=== PATIENT | female | born 1965 | race Hispanic/Latino ===

== ENCOUNTER 2018-01-01 07:00 | Inpatient (IN) | payer BC ==
[2017-12-31 15:38] VITALS: BP 143/84
[2017-12-31 15:55] LABS: BASOPHILS % (AUTO) 0.7 % (0.0-5.0); EOSINOPHILS % (AUTO) 1.8 % (0.0-8.0); HEMATOCRIT 39.5 % (36-48); LYMPHOCYTES % (AUTO) 37.6 % (21.0-51.0); MEAN CORPUSCULAR HEMOGLOBIN 31.5 pg (27.0-33.0); MEAN CORPUSCULAR HGB CONC 35.2 g/dL (32.0-36.0); MEAN CORPUSCULAR VOLUME 89.5 fL (79-99); MONOCYTES % (AUTO) 7.9 % (3.0-13.0); PLATELET COUNT (AUTO) 336 K/uL (130-400); RED BLOOD CELL COUNT(AUTO) 4.42 MIL/uL (4.00-5.50); RED CELL DISTRIBUTION WIDTH 11.8 % (11.0-15.5); WHITE BLOOD COUNT (AUTO) 7.7 K/uL (4.8-10.8)
[~2018-01-01] VITALS: Ht 158.8 cm; Wt 71.7 kg
[2018-01-01] VITALS (23 sets, daily range): BP systolic 95–149; BP diastolic 53–85
[~2018-01-01 07:00] MED LIST: CHOL100044 PO; FENO145T PO; metoprolol PO
[2018-01-01] MEDS ORDERED: LACTATED RINGERS 1000ML 1,000 ML IV ONE (07:50)
[2018-01-01] MEDS ORDERED: GLYCOPYRROLATE 0.2 MG/ML 5 ML VIAL ONE (08:00)
[2018-01-01] MEDS ORDERED: FENTANYL CITRATE PF 50 MCG/1 ML 2ML VIAL ONE ×2 (08:00→08:43)
[2018-01-01] MEDS ORDERED: PROPOFOL 10 MG/ML 20ML VIAL IV ONE (08:00)
[2018-01-01] MEDS ORDERED: LIDOCAINE PF 2% 5ML ABBOJECT ONE (08:00)
[2018-01-01] MEDS ORDERED: DEXAMETHASONE SOD PHOSPHATE 10MG/ML 1ML VIAL ONE (08:00)
[2018-01-01] MEDS ORDERED: WATER FOR INJECTION,STERILE 20 ML VIAL IJ ONE (08:00)
[2018-01-01] MEDS ORDERED: NEOSTIGMINE 5MG/5ML SYR IV ONE (08:00)
[2018-01-01] MEDS ORDERED: ONDANSETRON HCL 4 MG/2 ML VIAL ONE (08:00)
[2018-01-01] MEDS ORDERED: MIDAZOLAM HCL 1 MG/ML 2ML VIAL ONE (08:00)
[2018-01-01] MEDS: CEFAZOLIN SODIUM 1 GM VIAL IVP ONE ×2 (08:06→09:04)
[2018-01-01] MEDS ORDERED: SIMETHICONE 80 MG TAB.CHEW PO PRN (10:15)
[2018-01-01] MEDS ORDERED: DOCUSATE SODIUM 100 MG CAP PO PRN (10:15)
[2018-01-01] MEDS ORDERED: BISACODYL 10 MG SUPP.RECT RC PRN (10:15)
[2018-01-01] MEDS: DEXTROSE 5 %-0.45 % NACL 1,000 ML IV PRN ×2 (11:37→18:09)
[2018-01-01] MEDS: MEPERIDINE-PF 75 MG/ML SYG IM PRN (15:47)
[2018-01-01] MEDS: PROMETHAZINE HCL 25 MG/ML 1ML AMPULE IM PRN (15:47)
[2018-01-01] MEDS: METOPROLOL TARTRATE 50 MG TAB PO SCH (22:09)
[2018-01-02] VITALS (7 sets, daily range): BP systolic 79–130; BP diastolic 44–67
[2018-01-02] MEDS: PROMETHAZINE HCL 25 MG/ML 1ML AMPULE IM PRN (00:41)
[2018-01-02] MEDS: MEPERIDINE-PF 75 MG/ML SYG IM PRN (00:42)
[2018-01-02] MEDS: DEXTROSE 5 %-0.45 % NACL 1,000 ML IV PRN (00:42)
[2018-01-02 07:04] LABS: HEMATOCRIT 35.8 % (36-48); MEAN CORPUSCULAR HEMOGLOBIN 31.1 pg (27.0-33.0); MEAN CORPUSCULAR HGB CONC 34.4 g/dL (32.0-36.0); MEAN CORPUSCULAR VOLUME 90.5 fL (79-99); PLATELET COUNT (AUTO) 289 K/uL (130-400); RED BLOOD CELL COUNT(AUTO) 3.96 MIL/uL (4.00-5.50); RED CELL DISTRIBUTION WIDTH 12.1 % (11.0-15.5); WHITE BLOOD COUNT (AUTO) 16.2 K/uL (4.8-10.8)
[2018-01-02] MEDS: METOPROLOL TARTRATE 50 MG TAB PO SCH ×2 (09:05→21:25)
[2018-01-02] MEDS ORDERED: IBUPROFEN 800 MG TAB PO PRN (09:30)
[2018-01-02] MEDS ORDERED: ACETAMINOPHEN-CODEINE 300/30MG TAB PO PRN (09:30)
[2018-01-02] MEDS: IBUPROFEN 800 MG TAB PO SCH ×2 (10:46→18:45)
[2018-01-02] MEDS: SIMETHICONE 80 MG TAB.CHEW PO PRN ×3 (14:03→21:24)
[2018-01-02] MEDS: DOCUSATE SODIUM 100 MG CAP PO PRN (21:25)
[2018-01-03 00:25] VITALS: BP 93/56
[2018-01-03] MEDS: IBUPROFEN 800 MG TAB PO SCH ×2 (02:06→13:20)
[2018-01-03 04:05] VITALS: BP 99/59
[2018-01-03 07:48] VITALS: BP 119/55
[2018-01-03] MEDS: DOCUSATE SODIUM 100 MG CAP PO PRN (09:10)
[2018-01-03] MEDS: METOPROLOL TARTRATE 50 MG TAB PO SCH (09:10)
[2018-01-03] MEDS: SIMETHICONE 80 MG TAB.CHEW PO PRN ×2 (09:10→13:19)
[2018-01-03 11:43] VITALS: BP 143/74
[2018-01-03 15:43] VITALS: BP 141/78
== END 2018-01-03 15:45 | disposition home or self-care (01) | DRG 742 ==
LOC: DAH 07:00 → WSH 07:01
PROVIDERS: ADMIT Specialist; ATTEND Specialist
PROC: 0DNP0ZZ Release Rectum, Open Approach (ICD-10-PCS; 2018-01-01)
PROC: 0UB00ZZ Excision of Right Ovary, Open Approach (ICD-10-PCS; principal; 2018-01-01 08:20)
DX: N83.201 Unspecified ovarian cyst, right side (principal); N13.30 Unspecified hydronephrosis; E05.90 Thyrotoxicosis, unspecified without thyrotoxic crisis or storm; I10 Essential (primary) hypertension; N94.89 Other specified conditions associated with female genital organs and menstrual cycle; Z90.710 Acquired absence of both cervix and uterus
CPT/HCPCS: 36415; 85025; 85027; 86850; 86900; 86901; 88305; A4218; A4344; J0690; J1100; J2001; J2175; J2250; J2405; J2550; J2704; J2710; J3010; J3490; J7120

== ENCOUNTER 2024-02-26 20:40 | Inpatient (IN) | payer BC, OTHER ==
[~2024-02-26] VITALS: Ht 157.5 cm; Wt 63.6 kg
[2024-02-26 21:10] LABS: BASOPHILS # (AUTO) 0.05 K/uL (0.00-0.20); BASOPHILS % (AUTO) 0.6 % (0.0-5.0); EOSINOPHILS # (AUTO) 0.17 K/uL (0.00-0.70); EOSINOPHILS % (AUTO) 2.1 % (0.0-8.0); HEMATOCRIT 46.3 % (36-48); IMMATURE GRANULOCYTE ABSOLUTE 0.01 K/uL (0-1); LYMPHOCYTES % (AUTO) 48.9 % (21.0-51.0); MEAN CORPUSCULAR HEMOGLOBIN 30.6 pg (27.0-33.0); MEAN CORPUSCULAR HGB CONC 34.3 g/dL (32.0-36.0); MONOCYTES # (AUTO) 0.7 K/uL (0.1-1.0); MONOCYTES % (AUTO) 8.6 % (3.0-13.0); NEUTROPHILS # (AUTO) 3.2 K/uL (1.8-7.7); NEUTROPHILS % (AUTO) 39.7 % (40.0-77.0); PLATELET COUNT (AUTO) 338 K/uL (130-400); RED CELL DISTRIBUTION WIDTH 12.4 % (11.0-15.5); WHITE BLOOD COUNT (AUTO) 8.1 K/uL (4.8-10.8)
[2024-02-26 21:24] LABS: CREATININE 0.8 mg/dL (0.5-1.0); POTASSIUM 3.7 mmol/L (3.5-5.1)
[2024-02-26 21:29] LABS: ALBUMIN 4.2 g/dL (3.5-5.0); BILIRUBIN,TOTAL 0.4 mg/dL (0.2-1.0); TOTAL PROTEIN, SERUM 8.4 g/dL (6.0-8.3)
[2024-02-26 23:14] LABS: APPEARANCE,URINE CLEAR (CLEAR); BILIRUBIN,URINE NEGATIVE (NEGATIVE); COLOR,URINE LIGHT-YELLOW (YELLOW); GLUCOSE, URINE (UA) >=1000 mg/dL (NEGATIVE); KETONES,URINE NEGATIVE (NEGATIVE); LEUKOCYTE ESTERASE ,URINE NEGATIVE Leu/uL (NEGATIVE); NITRATE,URINE NEGATIVE (NEGATIVE); PROTEIN,URINE NEGATIVE (NEGATIVE); UROBILINOGEN,URINE 0.2 mg/dL (0.2-1.0)
[2024-02-26 23:22] LABS: ADD UA MICROSCOPIC YES
[2024-02-26 23:28] LABS: CALCIUM OXALATE CRYSTALS,UR RARE /LPF (None Seen); MUCUS,URINE RARE LPF (None Seen); SQUAMOUS EPITHELIAL CELL,UR FEW /HPF (0-2)
[2024-02-27] MEDS ORDERED: IOHEXOL-350 75 ML VIAL IV ONE (00:02)
[2024-02-27] MEDS ORDERED: EMPA25TA PO (02:10)
[2024-02-27] MEDS ORDERED: ROSU20TA73 PO (02:10)
[2024-02-27] MEDS ORDERED: ONDA-104 PO (02:10)
[2024-02-27] MEDS ORDERED: FAMO20TA8 PO (02:10)
[2024-02-27] MEDS ORDERED: ERGO500093 PO (02:10)
[2024-02-27] MEDS ORDERED: LOSA25TA41 PO (02:10)
[2024-02-27] MEDS ORDERED: DEXTROSE 50%-WATER 50 ML DISP.SYRIN IV PRN (03:00)
[2024-02-27] MEDS ORDERED: ONDANSETRON 4MG INJ IV PRN (03:00)
[2024-02-27] MEDS ORDERED: GLUCAGON 1MG KIT 1 MG ML IM PRN (03:00)
[2024-02-27] MEDS ORDERED: POTASSIUM CHLORIDE 20MEQ/100ML 100 ML IV PRN (03:00)
[2024-02-27] MEDS ORDERED: MAGNESIUM 2GM PREMIX 50ML 50 ML IV PRN (03:00)
[2024-02-27] MEDS: 0.9%NACL 1000ML 1,000 ML IV SCH (04:13)
[2024-02-27] MEDS: METRONIDAZOLE 500MG/100ML BAG 100 ML IV SCH (04:13)
[2024-02-27 07:25] VITALS: BP 135/79; PULSE 63; RESP 20; O2SAT 96
[2024-02-27] MEDS: INSULIN HUMULIN R 100 UNIT/ML 3ML SQ SCH (07:30)
[2024-02-27 08:31] LABS: BASOPHILS # (AUTO) 0.04 K/uL (0.00-0.20); BASOPHILS % (AUTO) 0.5 % (0.0-5.0); EOSINOPHILS # (AUTO) 0.15 K/uL (0.00-0.70); EOSINOPHILS % (AUTO) 1.9 % (0.0-8.0); HEMATOCRIT 44.4 % (36-48); IMMATURE GRANULOCYTE ABSOLUTE 0.02 K/uL (0-1); LYMPHOCYTES # (AUTO) 3.4 K/uL (1.0-4.8); LYMPHOCYTES % (AUTO) 42.5 % (21.0-51.0); MEAN CORPUSCULAR HEMOGLOBIN 31.3 pg (27.0-33.0); MEAN CORPUSCULAR HGB CONC 33.1 g/dL (32.0-36.0); MEAN CORPUSCULAR VOLUME 94.7 fL (79-99); MONOCYTES # (AUTO) 0.8 K/uL (0.1-1.0); MONOCYTES % (AUTO) 9.3 % (3.0-13.0); NEUTROPHILS # (AUTO) 3.7 K/uL (1.8-7.7); NEUTROPHILS % (AUTO) 45.6 % (40.0-77.0); PLATELET COUNT (AUTO) 263 K/uL (130-400); RED BLOOD CELL COUNT(AUTO) 4.69 MIL/uL (4.00-5.50); RED CELL DISTRIBUTION WIDTH 12.8 % (11.0-15.5); WHITE BLOOD COUNT (AUTO) 8.1 K/uL (4.8-10.8)
[2024-02-27] MEDS: FAMOTIDINE 20MG VIAL IV SCH (08:41)
[2024-02-27 08:46] LABS: ALBUMIN 3.7 g/dL (3.5-5.0); BILIRUBIN,TOTAL 0.5 mg/dL (0.2-1.0); CREATININE 0.7 mg/dL (0.5-1.0); TOTAL PROTEIN, SERUM 7.4 g/dL (6.0-8.3)
[2024-02-27 12:00] VITALS: BP 114/78; PULSE 67; RESP 18
[2024-02-27 16:40] VITALS: BP 125/75; PULSE 71; RESP 18
[2024-02-27 19:40] VITALS: BP 149/84; PULSE 65; RESP 18
[2024-02-27 20:00] VITALS: O2SAT 96
[2024-02-27 21:35] VITALS: BP 159/93; PULSE 64; RESP 20
[2024-02-28] VITALS: BP 125/70; PULSE 60; RESP 20
[2024-02-28] MEDS: MORPHINE 2 MG SYG IVP PRN (03:32)
[2024-02-28 04:00] VITALS: BP 129/68; PULSE 60; RESP 20
[2024-02-28 04:13] LABS: BASOPHILS # (AUTO) 0.04 K/uL (0.00-0.20); BASOPHILS % (AUTO) 0.7 % (0.0-5.0); EOSINOPHILS # (AUTO) 0.17 K/uL (0.00-0.70); EOSINOPHILS % (AUTO) 2.8 % (0.0-8.0); HEMATOCRIT 39.7 % (36-48); IMMATURE GRANULOCYTE ABSOLUTE 0.01 K/uL (0-1); LYMPHOCYTES # (AUTO) 3.2 K/uL (1.0-4.8); LYMPHOCYTES % (AUTO) 52.8 % (21.0-51.0); MEAN CORPUSCULAR HEMOGLOBIN 30.7 pg (27.0-33.0); MEAN CORPUSCULAR HGB CONC 34.5 g/dL (32.0-36.0); MONOCYTES # (AUTO) 0.4 K/uL (0.1-1.0); MONOCYTES % (AUTO) 6.9 % (3.0-13.0); NEUTROPHILS # (AUTO) 2.2 K/uL (1.8-7.7); NEUTROPHILS % (AUTO) 36.6 % (40.0-77.0); PLATELET COUNT (AUTO) 276 K/uL (130-400); RED BLOOD CELL COUNT(AUTO) 4.46 MIL/uL (4.00-5.50); RED CELL DISTRIBUTION WIDTH 12.2 % (11.0-15.5); WHITE BLOOD COUNT (AUTO) 6.1 K/uL (4.8-10.8)
[2024-02-28 04:29] LABS: ALBUMIN 3.2 g/dL (3.5-5.0); BILIRUBIN,TOTAL 0.6 mg/dL (0.2-1.0); CREATININE 0.6 mg/dL (0.5-1.0); POTASSIUM 3.2 mmol/L (3.5-5.1); TOTAL PROTEIN, SERUM 6.5 g/dL (6.0-8.3)
[2024-02-28 07:00] VITALS: BP 150/80; PULSE 70; RESP 20
[2024-02-28 08:30] VITALS: O2SAT 99
[2024-02-28] MEDS ORDERED: POTASSIUM CHLORIDE 10% ELIXIR 20 MEQ/15 ML UDCUP PO PRN (11:00)
[2024-02-28 11:37] VITALS: BP 138/79; PULSE 73; RESP 20
[2024-02-28] MEDS: KCL 20 MEQ ERTAB PO PRN (11:45)
[2024-02-28 15:00] VITALS: BP 149/80; PULSE 70; RESP 20
[2024-02-28] MEDS ORDERED: METR-172 PO (18:10)
== END 2024-02-28 18:45 | disposition home or self-care (01) | DRG 390 ==
LOC: EDH 20:40 → EDHIP 02-27 02:34 → 2DH 02-27 07:25 → 4BH 02-27 21:37
PROVIDERS: ADMIT Hospitalist; ATTEND Hospitalist
DX: K56.699 Other intestinal obstruction unspecified as to partial versus complete obstruction (principal); I10 Essential (primary) hypertension; E78.00 Pure hypercholesterolemia, unspecified; E11.9 Type 2 diabetes mellitus without complications; Z60.2 Problems related to living alone; K31.89 Other diseases of stomach and duodenum; Z82.49 Family history of ischemic heart disease and other diseases of the circulatory system; Z83.3 Family history of diabetes mellitus
CPT/HCPCS: 36415; 74177; 80053; 81001; 82150; 82948; 83690; 83735; 85025; 86677; 87086; 87186; G0378; J1815; J2270; J3490; Q9967

== ENCOUNTER 2024-04-12 08:24 | Emergency (ER) | payer OTHER ==
[~2024-04-12] VITALS: Ht 157.5 cm; Wt 65.8 kg
[~2024-04-12 08:24] MED LIST changes: -CHOL100044 PO; +EMPA25TA PO; +ERGO500093 PO; +FAMO20TA8 PO; +LOSA25TA41 PO; +METR-172 PO; +ONDA-104 PO; +ROSU20TA73 PO; -metoprolol PO
[2024-04-12 09:02] LABS: BASOPHILS # (AUTO) 0.01 K/uL (0.00-0.20); BASOPHILS % (AUTO) 0.1 % (0.0-5.0); HEMATOCRIT 48.4 % (36-48); IMMATURE GRANULOCYTE ABSOLUTE 0.02 K/uL (0-1); LYMPHOCYTES # (AUTO) 0.6 K/uL (1.0-4.8); LYMPHOCYTES % (AUTO) 8.4 % (21.0-51.0); MEAN CORPUSCULAR HGB CONC 34.3 g/dL (32.0-36.0); MEAN CORPUSCULAR VOLUME 90.5 fL (79-99); MONOCYTES # (AUTO) 0.3 K/uL (0.1-1.0); MONOCYTES % (AUTO) 3.7 % (3.0-13.0); NEUTROPHILS # (AUTO) 6.4 K/uL (1.8-7.7); NEUTROPHILS % (AUTO) 87.5 % (40.0-77.0); PLATELET COUNT (AUTO) 281 K/uL (130-400); RED BLOOD CELL COUNT(AUTO) 5.35 MIL/uL (4.00-5.50); RED CELL DISTRIBUTION WIDTH 12.6 % (11.0-15.5); WHITE BLOOD COUNT (AUTO) 7.4 K/uL (4.8-10.8)
[2024-04-12] MEDS: FAMOTIDINE 20MG VIAL IV ONE (09:02)
[2024-04-12] MEDS: morPHINE 2 MG SYG IVP ONE (09:02)
[2024-04-12] MEDS: ondanSETRON 4MG INJ IVP ONE (09:02)
[2024-04-12 09:12] LABS: INR 1.06 (0.85-1.15); PROTHROMBIN TIME 11.4 SEC (9.6-11.6)
[2024-04-12 09:13] LABS: APPEARANCE,URINE CLEAR (CLEAR); BACTERIA,URINE FEW /HPF (None Seen); BILIRUBIN,URINE NEGATIVE (NEGATIVE); COLOR,URINE LIGHT-YELLOW (YELLOW); GLUCOSE, URINE (UA) >=1000 mg/dL (NEGATIVE); KETONES,URINE 10 mg/dL (NEGATIVE); LEUKOCYTE ESTERASE ,URINE NEGATIVE Leu/uL (NEGATIVE); MUCUS,URINE RARE LPF (None Seen); NITRATE,URINE 1+ (NEGATIVE); PH,URINE 5.5 (5.0-8.0); PROTEIN,URINE 10 mg/dL (NEGATIVE); SQUAMOUS EPITHELIAL CELL,UR RARE /HPF (0-2); UROBILINOGEN,URINE 0.2 mg/dL (0.2-1.0)
[2024-04-12 09:14] LABS: PARTIAL THROMBOPLASTIN TIME 26.2 SEC (26.3-35.5)
[2024-04-12 09:20] LABS: ALBUMIN 3.9 g/dL (3.5-5.0); BILIRUBIN,DIRECT 0.2 mg/dL (0.0-0.3); BILIRUBIN,TOTAL 1.1 mg/dL (0.2-1.0); CREATININE 0.6 mg/dL (0.5-1.0); POTASSIUM 3.6 mmol/L (3.5-5.1); TOTAL PROTEIN, SERUM 8.4 g/dL (6.0-8.3)
[2024-04-12] MEDS ORDERED: morPHINE 2 MG SYG IVP ONE (09:30)
[2024-04-12] MEDS ORDERED: ondanSETRON 4MG INJ IVP ONE (09:30)
[2024-04-12] MEDS: 0.9%NACL 1000ML 1,000 ML IV ONE (09:44)
[2024-04-12] MEDS: cefTRIAXone 1G VIAL IVPB ONE (09:46)
[2024-04-12] MEDS ORDERED: FAMO10TA39 PO (09:50)
[2024-04-12] MEDS ORDERED: ONDA-243 PO (09:50)
[2024-04-12] MEDS ORDERED: CEPH500B PO (09:50)
[2024-04-12 09:55] VITALS: BP 132/65; PULSE 79; RESP 17; TEMP 98.6; O2SAT 96
== END 2024-04-12 10:01 | disposition home or self-care (01) ==
LOC: EDH 08:24
DX: K29.70 Gastritis, unspecified, without bleeding (principal); N39.0 Urinary tract infection, site not specified; E78.00 Pure hypercholesterolemia, unspecified; I10 Essential (primary) hypertension; Z79.84 Long term (current) use of oral hypoglycemic drugs; Z79.899 Other long term (current) drug therapy
CPT/HCPCS: 99284; 96374; 96375; 80076; 84484; 80048; 83690; 85025; 85610; 85730; 87086 ×2; 87186; 83605; 81001; 36415; 93005; 84145; J3490; J2270; J0696; J2405

== ENCOUNTER 2024-11-18 20:14 | Emergency (ER) | payer OTHER ==
[~2024-11-18] VITALS: Ht 157.5 cm; Wt 70.3 kg
[~2024-11-18 20:14] MED LIST changes: +CEPH500B PO; +FAMO10TA39 PO; +ONDA-243 PO; -ROSU20TA73 PO; +ROSU20TA98 PO
[2024-11-18] MEDS: LIDOCAINE HCL 2% VISCOUS 15 ML UDCUP PO ONE (22:56)
[2024-11-18] MEDS: morPHINE 2 MG SYG IVP ONE (22:56)
[2024-11-18] MEDS: PANTOPrazole 40 MG/VIAL IVP ONE (22:56)
[2024-11-18] MEDS: MAG/ALUM/SIMETH 30 ML UDCUP PO ONE (22:56)
[2024-11-18] MEDS: ondanSETRON 4MG INJ IVP ONE (22:56)
[2024-11-18] MEDS: DICYCLOMINE HCL 10 MG/5 ML ML PO ONE (22:56)
[2024-11-18] MEDS: LACTATED RINGERS 1000ML 1,000 ML IV ONE (22:56)
--- NOTE | 2024-11-18 22:59 | ERN ---
General Chief Complaint: Abdominal Pain Stated Complaint: C/O ABD PAIN WITH N X V X DIARRHEA Time Seen by MD: 20:40 History of Present Illness Initial Comments Mrs Oneill is a 59-year-old female who presents with a 20 history of sharp epigastric abdominal pain radiating to the right upper quadrant, associated with the excessive burping, nausea, bloating and intermittent watery diarrhea. She reports burning type pain, worsening with lying down, and occasional shortness of breath during episodes. She denies chest pain, fever, double vision or recent food in his depression. She has had significantly reduced oral intake limited to applesauce and bananas due to symptoms. She notes this episodes of a similar to 1 from last April for which she was diagnosed with gastritis. She previously underwent EGD and colonoscopy which reports [place] revealed mild gastritis with otherwise normal findings. She did not follow up with GI specialist after that Allergies: Coded Allergies: No Known Allergies (Unverified Allergy, Unknown, 12/31/17) Home Meds Active Scripts Cephalexin Monohydrate (Keflex) 500 Mg Cap, 500 MG PO BID for 7 Days, #14 CAP Prov:DAVID CAT MD 04/12/24 Famotidine (Pepcid AC) 10 Mg Tablet, 10 MG PO BID for 5 Days, #10 TAB Prov:DAVID CAT MD 04/12/24 Ondansetron (Ondansetron Odt) 4 Mg Tab.rapdis, 4 MG PO BID for 5 Days, #10 TAB Prov:DAVID CAT MD 04/12/24 Metronidazole (Metronidazole) 500 Mg Tablet, 500 MG PO TID, #7 TAB Prov:ROSEANN BATISTAP 02/28/24 Reported Medications Empagliflozin (Jardiance) 25 Mg Tablet, 25 MG PO DAILY, TAB 02/27/24 Losartan Potassium (Losartan Potassium) 25 Mg Tablet, 25 MG PO DAILY, TAB 02/27/24 Ergocalciferol (Vitamin D2) (Vitamin D2) 1,250 Mcg (19503 Unit) Capsule, 1250 MCG PO QWEEK, CAP 02/27/24 Rosuvastatin Calcium (Rosuvastatin Calcium) 20 Mg Tablet, 20 MG PO HS, TAB 02/27/24 Ondansetron HCl (Ondansetron HCl) 4 Mg Tablet, 4 MG PO [id number] PRN for NAUSEA, TAB 02/27/24 Famotidine (Famotidine) 20 Mg Tablet, 20 MG PO BID, TAB 02/27/24 Fenofibrate Nanocrystallized (Tricor) 145 Mg Tablet, 145 MG PO DAILY, TAB 12/31/17 Past Medical History Past Medical History: Diabetes-Type II, High Cholesterol, Hypertension Past Surgical History: ROS Dictation Constitutional: Negative for fever,chills, and weight loss Eyes: Negative for injury, pain,redness, and discharge ENT: Negative for injury,pain or swelling Cardiovascular: Negative for chest pain, palpitations, and edema Respiratory: Positive for shortness of breath when lying down Abdomen/GI: Positive for epigastric pain, bloating, burping, nausea, diarrhea, reduced appetite Back: Negative for injury and pain : Negative for injury, bleeding and discharge MS/Extremity: Negative for injury and deformity Skin: Negative for rash, and discoloration Neuro: Mild headache Psych: Negative for suicide ideation, homicidal ideation, and hallucinations Physical Exam Physical Exam Dictation General: Alert mild distress from pain Head/Face: Normocephalic, atraumatic Eyes: PERRL, EOMI, vision at baseline ENT: oral cavity clear, TMs clear, no signs of infection Neck: Trachea midline, supple, no nuchal rigidity Cardiovascular: RRR, normal S1/S2, No MRGs, no JVD Respiratory: CTAB, no respiratory distress, No rales or wheezes Abdomen: Epigastric and right upper quadrant tenderness, distention, no rebound or guarding, no palpable mass Skin: Warm, dry, normal turgor, no rash MS/Extremity: Pulses equal, no cyanosis, neurovascular intact, FROM Neuro: COAx4, GCS 15, strength 5/5, CN 2-12 intact, normal cerebellar exam, normal gait, Psych: Normal behavior, mood, and affect normal Results Laboratory and Microbiology Lab and Micro Result Laboratory Tests Test 11/18/24 22:50 White Blood Count 9.1 K/uL (4.8-10.8) Red Blood Count 5.61 MIL/uL (4.00-5.50) H Hemoglobin 17.1 g/dL (12.0-16.0) H Hematocrit 49.6 % (36-48) H Mean Corpuscular Volume 88.4 fL (79-99) Mean Corpuscular Hemoglobin 30.5 pg (27.0-33.0) Mean Corpuscular Hemoglobin Concent 34.5 g/dL (32.0-36.0) Red Cell Distribution Width 12.8 % (11.0-15.5) Platelet Count 268 K/uL (130-400) Mean Platelet Volume 11.1 fL (7.5-10.5) H Immature Granulocyte % (Auto) 0.2 % (0-1) Neutrophils (%) (Auto) 48.9 % (40.0-77.0) Lymphocytes (%) (Auto) 41.9 % (21.0-51.0) Monocytes (%) (Auto) 6.6 % (3.0-13.0) Eosinophils (%) (Auto) 1.9 % (0.0-8.0) Basophils (%) (Auto) 0.5 % (0.0-5.0) Neutrophils # (Auto) 4.5 K/uL (1.8-7.7) Lymphocytes # (Auto) 3.8 K/uL (1.0-4.8) Monocytes # (Auto) 0.6 K/uL (0.1-1.0) Eosinophils # (Auto) 0.17 K/uL (0.00-0.70) Basophils # (Auto) 0.05 K/uL (0.00-0.20) Absolute Immature Granulocyte (auto 0.02 K/uL (0-1) Nucleated Red Blood Cells 0.0 % (0.0-0.19) Sodium Level 137 mmol/L (136-145) Potassium Level 3.7 mmol/L (3.5-5.1) Chloride Level 102 mmol/L (101-111) Carbon Dioxide Level 28 mmol/L (21-32) Blood Urea Nitrogen 9 mg/dL (7-18) Creatinine 0.5 mg/dL (0.5-1.0) Glomerular Filtration Rate Calc 107 mL/min (>90) Random Glucose 91 mg/dL (70-105) Total Calcium 9.5 mg/dL (8.5-10.1) Total Bilirubin 0.5 mg/dL (0.2-1.0) Aspartate Amino Transf (AST/SGOT) 27 U/L (10-37) Alanine Aminotransferase (ALT/SGPT) 30 U/L (12-78) Alkaline Phosphatase 101 U/L (50-136) Total Protein 8.6 g/dL (6.0-8.3) H Albumin 4.0 g/dL (3.5-5.0) Lipase 52 U/L (16-77) MDM Mrs Oneill presented with a burning epigastric discomfort which improved s ignificantly following administration with GI cocktail, suggestion in the likely acid related etiology such as gastritis/GERD. Patient denies fever, jaundice or vomiting. Pain was not Colicky or radiating and there was no guarding or rebound Patient will be given PPI trial 20 mg for 14 days, advised to avoid NSAIDs, spicy food and alcohol. Reinforced hydration and GI diet for 48-72 hours. Follow up with the PCP or GI for consideration of EGD if worsening symptoms present. MDM: Differential diagnosis: Epigastric pain resolved with GI cocktail, gastritis, functional dyspepsia Rationale: Tests considered and ordered secondary to shared decision making include: Previous outside records reviewed: Old ER visits. Risk of complication and/or morbidity or mortality of patient management: None Medications-Per medication reconciliation Need for hospitalization: Patient does not meet criteria for hospitalization. Need for emergency major/minor surgery: No There are no social concerns with this patient. Prescription drug management Prescriptions will include symptomatic care Patient's prior external medical records from other ER visits were reviewed by me as indicated. Prior testing and results from previous visits were reviewed. Prior tests were taken into account with medical decision making and resource utilization, independent historian/historians were used to obtain complete medi pablo history. I independently interpreted the test that were performed, results were reviewed by me and considered findings on radiology if ordered. Medical management and examination interpretation discussions were had by me with other qualified healthcare professionals as indicated for the patient's care. ED Course Orders Procedure Category Date Status Time Comprehensive LAB 11/18/24 Complete Metabolic Panel 22:34 Lipase LAB 11/18/24 Complete 22:34 H. Pylori Antigen LAB 11/18/24 Logged Stool 22:34 Us Abdominal Ruq\Ltd US 11/18/24 Resulted 22:34 Lactated Ringers PHA 11/18/24 Complete 1000ml (Lactated 23:00 Morphine 2mg Syg PHA 11/18/24 Complete (Morphine 2mg Syg) 23:00 Ondansetron 4mg Inj PHA 11/18/24 Complete (Zofran 4mg Inj) 23:00 Lidocaine Hcl 2% PHA 11/18/24 Complete Viscous (Lidocaine Hcl 23:00 Mag/Alum/Simeth 30ml PHA 11/18/24 Complete (Maalox Plus 30ml) 23:00 Pantoprazole 40mg Inj PHA 11/18/24 Complete (Protonix 40mg Inj 23:00 Dicyclomine Hcl PHA 11/18/24 Complete (Bentyl 10mg/5ml 23:00 Cbc With Differential LAB 11/18/24 Complete 22:34 Current Medications Medications (Trade) Dose Ordered Sig/Jac Route PRN Reason Start Time Stop Time Status Last Admin Dose Admin Al Hydroxide/Mg Hydroxide (MAALox PLUS 30ML) 30 ml ONCE ONCE PO 11/18/24 23:00 11/18/24 23:01 DC 11/18/24 22:56 Dicyclomine HCl (Bentyl 10mg/5ml Syrup) 10 mg ONCE ONCE PO 11/18/24 23:00 11/18/24 23:01 DC 11/18/24 22:56 Lactated Ringer's 1,000 ml @ 0 mls/hr ONCE ONCE IV 11/18/24 23:00 11/18/24 23:01 DC 11/18/24 22:56 Lidocaine HCl (Lidocaine HCl 2% Viscous) 10 ml ONCE ONCE PO 11/18/24 23:00 11/18/24 23:01 DC 11/18/24 22:56 Morphine Sulfate (morPHINE 2MG SYG) 2 mg ONCE ONCE IVP 11/18/24 23:00 11/18/24 23:01 DC 11/18/24 22:56 Ondansetron HCl (zoFRAN 4MG INJ) 4 mg ONCE ONCE IVP 11/18/24 23:00 11/18/24 23:01 DC 11/18/24 22:56 Pantoprazole Sodium (PROTonix 40MG INJ) 40 mg ONCE ONCE IVP 11/18/24 23:00 11/18/24 23:01 DC 11/18/24 22:56 Vital Signs Date Time Temp Pulse Resp B/P (MAP) Pulse Ox O2 Delivery O2 Flow Rate FiO2 11/18/24 22:33 99.9 72 16 160/95 98 Room Air* 0 21 11/18/24 20:18 99.9 75 20 162/99 98 Room Air DX & DISP Disposition: Discharge Departure Impression: Primary Impression: Gastritis Condition: Stable Scripts Omeprazole (Omeprazole) 40 Mg Capsule.dr 1 CAP PO DAILY for gastritis for 14 Days, #14 CAP 0 Refills Prov: ALONDRA LUNA MD 11/19/24 Additional Instructions: Who please follow up with your primary care physician/GI doctor for consideration of EGD. Avoid NSAIDs, spicy food and alcohol Stay hydrated and try a GI diet for 48-72 hours. Take antiacid medication daily for the next 2 weeks and see if this improves your gastritis Referrals: JOVAN SWENSON MD (PCP) ALONDRA LUNA MD Nov 18, 2024 22:59
--- NOTE | 2024-11-18 23:19 | NUR ---
TRANSFERED CARE TO [facility] AT THIS TIME
[2024-11-18 23:33] LABS: BASOPHILS # (AUTO) 0.05 K/uL (0.00-0.20); BASOPHILS % (AUTO) 0.5 % (0.0-5.0); EOSINOPHILS # (AUTO) 0.17 K/uL (0.00-0.70); EOSINOPHILS % (AUTO) 1.9 % (0.0-8.0); HEMATOCRIT 49.6 % (36-48); IMMATURE GRANULOCYTE ABSOLUTE 0.02 K/uL (0-1); LYMPHOCYTES # (AUTO) 3.8 K/uL (1.0-4.8); LYMPHOCYTES % (AUTO) 41.9 % (21.0-51.0); MEAN CORPUSCULAR HEMOGLOBIN 30.5 pg (27.0-33.0); MEAN CORPUSCULAR HGB CONC 34.5 g/dL (32.0-36.0); MEAN CORPUSCULAR VOLUME 88.4 fL (79-99); MONOCYTES # (AUTO) 0.6 K/uL (0.1-1.0); MONOCYTES % (AUTO) 6.6 % (3.0-13.0); NEUTROPHILS # (AUTO) 4.5 K/uL (1.8-7.7); NEUTROPHILS % (AUTO) 48.9 % (40.0-77.0); PLATELET COUNT (AUTO) 268 K/uL (130-400); RED BLOOD CELL COUNT(AUTO) 5.61 MIL/uL (4.00-5.50); RED CELL DISTRIBUTION WIDTH 12.8 % (11.0-15.5); WHITE BLOOD COUNT (AUTO) 9.1 K/uL (4.8-10.8)
[2024-11-18 23:43] LABS: CREATININE 0.5 mg/dL (0.5-1.0); POTASSIUM 3.7 mmol/L (3.5-5.1)
[2024-11-18 23:51] LABS: BILIRUBIN,TOTAL 0.5 mg/dL (0.2-1.0); TOTAL PROTEIN, SERUM 8.6 g/dL (6.0-8.3)
--- NOTE | 2024-11-19 00:20 | HMCIMG ---
US ABDOMINAL RUQ\E\LTD HISTORY: No additional history given. COMPARISON: None TECHNIQUE: Right upper quadrant abdominal ultrasound study was performed. FINDINGS: Liver measures 15 cm. Pancreas not well seen due to overlying bowel gas. Liver is echogenic consistent with liver parenchymal disease. Gallbladder has been moved. Common duct measures 7 mm. The study is limited due to overlying bowel gas. Right kidney measures 11 x 6 x 5 cm. No hydronephrosis is seen of the right kidney. IMPRESSION: 1. status post cholecystectomy. No ductal dilatation is seen. 2. No hydronephrosis is seen.
[2024-11-19] MEDS ORDERED: OMEP40CA21 PO (00:59)
[2024-11-19 01:50] VITALS: BP 142/88; PULSE 76; RESP 16; TEMP 99.1; O2SAT 99
== END 2024-11-19 02:04 | disposition home or self-care (01) ==
LOC: EDH 20:14
DX: K29.70 Gastritis, unspecified, without bleeding (principal); E11.9 Type 2 diabetes mellitus without complications; E78.00 Pure hypercholesterolemia, unspecified; I10 Essential (primary) hypertension; Z79.84 Long term (current) use of oral hypoglycemic drugs; Z79.899 Other long term (current) drug therapy; Z90.49 Acquired absence of other specified parts of digestive tract
CPT/HCPCS: 99285; 96374; 76705; 96375; 80053; 83690; 85025; 36415; J7120; J2270; J2405; J2470